=== PATIENT | female | born 1950 ===

== ENCOUNTER 2021-11-16 10:28 | Outpatient (REF) | payer MEDICARE, OTHER, SELFPAY ==
--- NOTE | 2021-11-16 11:05 | MHC.AU.ANR ---
Adult Audiological Evaluation Date of Visit: 11/16/21 Reason for Appointment: Audiological evaluation to determine baseline hearing levels as recommended by her primary care physician. Anusha denies any significant concerns for her hearing and notes that she hears well in most situations. She denies any tinnitus, dizziness, history of noise exposure, or history of ear infections. Does patient feel they have a hearing loss?: No Has hearing been tested previously?: Yes Previous Hearing Test Results: Patient reports having her hearing tested many years ago, but does not remember the results. Hearing Handicap Inventory: HHIE SCORE: 0 Based on HHIE score, patient has: No perceived hearing handicap Medical History: Medical History: High Blood Pressure Medical History (Other): Per PCP report: Alzheimer's dementia Allergies: Latex, Neosporin, codeine Medication List: Per patient, only takes Vitamins. Per PCP report she is prescribed pravastatin, Docusate sodium, sertraline, trazodone Otoscopy: Right Ear: Unremarkable Left Ear: Unremarkable Tympanometry: Tympanometry performed due to: To assess integrity of the middle ear system Right Ear: Normal Middle Ear System (Type A) Left Ear: Normal Middle Ear System (Type A) Hearing Evaluation: Transducer(s) Used: Insert Earphones, Bone Conduction Method: Conventional Audiometry Stimuli Used: Pure Tones Right Ear: Description of Hearing: Normal hearing from 250-4000 Hz, sloping to a mild to moderate hearing loss from 0425-3684 Hz. Left Ear: Description of Hearing: Normal hearing from 250-4000 Hz, sloping to a mild hearing loss from 9713-5227 Hz. Speech Recognition Threshold (SRT): Method Used: Monitored Live Voice Stimuli Used: Spondee Words Right Ear: 15 dBHL Left Ear: 15 dBHL Word Discrimination: Method: Recorded Lists Word Lists Used: NU-6 Right Ear: 96% at 55 dBHL Left Ear: 100% at 55 dBHL Interpretation of Results: Mild to moderate high-frequency hearing loss bilaterally, likely sensorineural in nature. Hearing loss of this degree is not expected to have a significant impact on an individual's ability to communicate. Recommendations: Audiological re-evaluation in one year to monitor hearing. Amplification is not warranted at this time. Diagnosis: Primary Diagnosis: H90.3 Bilateral Sensorineural Hearing Loss Services Performed: Services Performed: Comprehensive Audiological Evaluation (CPT 19001) Tympanometry (CPT 37701) Signature: Provider: Lisha Witt, CCC-A
== END 2021-11-16 10:29 | disposition home or self-care (01) ==
LOC: HO.SH 10:28
PROVIDERS: Visit Provider Internal Medicine
DX: Z01.118 Encounter for examination of ears and hearing with other abnormal findings (principal); H90.3 Sensorineural hearing loss, bilateral
CPT/HCPCS: 92557; 92567